=== PATIENT | female | born 1960 | race Hispanic/Latino ===

== ENCOUNTER → 2023-11-18 14:31 | Outpatient (REF) | payer OTHER, SELFPAY | LOC: WDC 14:31 | PROVIDERS: ATTENDING PHYSICIAN Family Medicine | DX: Z12.31 Encounter for screening mammogram for malignant neoplasm of breast (principal) | CPT/HCPCS: 77063; 77067 ==

== ENCOUNTER → 2023-11-23 14:44 | Outpatient (REF) | payer OTHER, SELFPAY | LOC: DHCBC HW 14:44 | PROVIDERS: ATTENDING PHYSICIAN Internal Medicine Cardiovascular Disease; FAMILY PHYSICIAN Family Medicine | DX: R07.89 Other chest pain (principal) | CPT/HCPCS: 93306 ==

== ENCOUNTER → 2023-12-09 13:43 | Outpatient (REF) | payer OTHER, SELFPAY | LOC: RCS 13:43 | PROVIDERS: ATTENDING PHYSICIAN Internal Medicine Cardiovascular Disease; FAMILY PHYSICIAN Family Medicine | DX: R07.89 Other chest pain (principal) | CPT/HCPCS: 93017; 93350 ==

== ENCOUNTER → 2024-01-23 10:47 | Outpatient (REF) | payer OTHER, SELFPAY | LOC: RAD 10:47 | PROVIDERS: ATTENDING PHYSICIAN Family Medicine | DX: M25.551 Pain in right hip (principal) | CPT/HCPCS: 73502 ==

== ENCOUNTER → 2024-02-07 08:30 | Outpatient (REF) | payer OTHER, SELFPAY | LOC: PAVMRI 08:30 | PROVIDERS: ATTENDING PHYSICIAN Family Medicine | DX: D49.6 Neoplasm of unspecified behavior of brain (principal); Q28.2 Arteriovenous malformation of cerebral vessels | CPT/HCPCS: 70553; A9575 ==

== ENCOUNTER → 2024-03-08 12:51 | Outpatient (REF) | payer OTHER, SELFPAY | LOC: HWRAD 12:51 | PROVIDERS: ATTENDING PHYSICIAN Nurse Practitioner Adult Health; FAMILY PHYSICIAN Family Medicine | DX: D25.9 Leiomyoma of uterus, unspecified (principal); R10.2 Pelvic and perineal pain | CPT/HCPCS: 76830; 76856 ==

== ENCOUNTER 2025-02-05 10:22 | Emergency (ER) | payer OTHER, SELFPAY ==
[2025-02-05 10:31] VITALS: BP 206/121
[2025-02-05 11:01] VITALS: BP 159/92
--- NOTE | 2025-02-05 12:53 | ED.GENMED ---
History of Present Illness
General
Chief Complaint: Musculo-Skeletal Complaint
Source: patient
Exam Limitations: none
Time Seen by Provider: 02/05/25 12:40
Nursing documentation reviewed up to this point in time: agreed with
History of Present Illness
History of Present Illness:
64-year-old female with history as documented presents to the emergency room for evaluation of uncontrolled chronic pain in her right arm. Patient reports that she has been having pain in her upper extremities for months. She says that she was
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 She says initially she started with symptoms in the left arm�she says that she was treated with a steroid pack which resolved the symptoms. She says about 2 months ago symptoms
started in the right arm. She was seen in urgent care for this and once again started on steroids which helped; she said she finished steroid pack 2 weeks ago and since then pain has increased once again. She describes a shooting pain from the
right shoulder that radiates towards the fingertips on the right. Worse with certain movements. She denies any weakness or numbness. She denies any other complaints. She says that she scheduled an appoint with her primary doctor but feels her
symptoms are poorly controlled and cannot wait until her appointment and so she came to the ER.
Past History
Past History
ED Past Medical History: Cancer, GERD and HTN
ED Past Surgical History: Brain, Gynecological and Other (Breast cancer)
Social History
Tobacco: Non-smoker
Alcohol: None
Drug: None
Personal:
Living: with family
Employment: Employed
Family History
Family History: Other (Noncontributory)
Review of Systems
Review of Systems
All Other Systems: ROS reviewed and negative except as documented in HPI and ROS
Respiratory: Denies trouble breathing
Cardiac: Denies chest pain
ABD/GI: Denies abdominal pain
Musculoskeletal: Reports other (Right arm pain)
Neurological: Denies weakness or numbness
Phy Exam
Physical Exam
Physical Exam:
General: Well appearing and non-toxic
HEENT: protecting airway
Neck: appears supple
CV: No evidence of cyanosis
Resp: No accessory muscle use
Abd: Non-distended
Extremities: No deformities; she has some mild paraspinal tenderness right side cervical region and tenderness along the right upper trapezius; she has full range of motion of the right shoulder and elbow and is using her arm throughout my history
and exam despite her reported pain; motor and sensory function is intact and symmetric in the upper extremities bilaterally in the radial, median, ulnar nerve distributions
Neuro: Alert
Psych: Normal affect
Skin: Intact, no rash on the upper extremities
Scores
Heart Failure Risk
Heart Failure Risk Score: Not Applicable
Heart Score for Chest Pain Patients
STEMI patient?: Not applicable
Withdrawal Assessment of Alcohol
Withdrawal Assessment Completed?: Not applicable
Course
Orders/Labs/Results
Orders:
Orders
02/05/25 10:36
EKG [Electrocardiogram (*1)] Urgent
Reason for Study: Hypertension, Benign
EKG- Treatment ONCE
02/05/25 12:49
Ketorolac [Toradol] 30 mg IM NOW STA
Oxycodone [Roxicodone] 5 mg PO NOW STA
Prednisone [Deltasone] 50 mg PO NOW STA
Vital Signs
Initial and Last Documented VS:
Initial Vital Signs
Temp Pulse Resp BP Pulse Ox
36.7 C 96 18 206/121 99
02/05/25 10:31 02/05/25 10:31 02/05/25 10:31 02/05/25 10:31 02/05/25 10:31
Last Documented Vital Signs
Temp Pulse Resp BP Pulse Ox
36.7 C 96 18 159/92 99
02/05/25 10:31 02/05/25 10:31 02/05/25 10:31 02/05/25 11:01 04/22/25 10:31
MDM/Problems Addressed
Differential Diagnosis Includes:
Cervical radiculopathy, arthritis
MDM/Problems Addressed:
64-year-old female presents with uncontrolled chronic pain in her right arm. 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 She was hypertensive in triage this improved by my
assessment that she says she did not take her blood pressure medicine this morning. Rest of vitals acceptable. Physical exam as above. Suspect likely cervical radiculopathy. In my judgment based on history and exam no indication for emergent
imaging. Will prescribe steroids as these have helped her in the past and can start on pain control regimen. Follow-up with primary care physician as an outpatient. Patient comfortable with this plan. All questions answered.
Acute Exacerbation and/or Progression of Chronic Illness:
Acutely hypertensive�no signs or symptoms of hypertensive crisis�no indication for emergent antihypertensives
Acute Exacerbation and/or Progression of Chronic Illness: HTN
*Pulse Oximetry
Patient hypoxic: no
*EKG
Interpreted by ED Provider?: Yes
Heart Rate: 86
Rate: normal
Rhythm: sinus
Dragoon: normal axis
Interval: normal interval
QRS Pattern: normal QRS
Ischemia: no ischemia
*Critical Care Note
Total Time (30-74mins, 75-104mins- exclusive of procedures): Not Applicable
Data Reviewed
Source: patient and records
Further Testing Considered But Not Given:
Considered x-ray of the shoulder, cervical spine
Update Note
Update Note:
ED Attending Note
-
Portions of this chart may have been created with voice recognition software.� Occasional wrong word or��sound alike� substitutions may have occurred due to the inherent limitations of voice recognition software.
Discharge Plan
Departure
Patient Disposition: Home (Routine Discharge)
Date of Disposition: 02/05/25
Time of Disposition: 12:53
Patient with high blood pressure during this ER visit?: Yes
Discharge Problem:
Cervical radiculopathy
Instructions: Radiculopathy of the neck and back (including sciatica)
Prescriptions:
New
tramadol 50 mg tablet
50 mg PO TID PRN (Reason: Pain) Qty: 14 0RF
prednisone 10 mg Tablet
See Rx Instructions .ROUTE .COMPLEX Qty: 45 0RF
Rx Instructions:
Take By Mouth:
50 mg daily x3 days, 40 mg daily x3 days,
30 mg daily x3 days, 20 mg daily x3 days,
10 mg daily x3 days
No Action
acetaminophen [Tylenol Extra Strength] 500 MG tablet
500 mg PO Q6HPRN PRN (Reason: mild pain)
ginkgo biloba 60 MG tablet
60 mg PO DAILY
gabapentin 100 MG capsule
100 mg PO DAILYPRN PRN (Reason: numbness)
metoprolol succinate 25 MG tablet extended release 24 hr
25 mg PO DAILY
bupropion HCl 300 MG tablet extended release 24 hr
300 mg PO DAILY
peg 400-propylene glycol (PF) [Systane (PF)] 1 EACH dropperette
1 drp BOTH EYES DAILYPRN PRN (Reason: dry eyes)
calcium carbonate-vitamin D3 [Oyster Shell Calcium-Vit D3] 500 MG tablet
1 tab PO DAILY
dexlansoprazole [Kapidex] 60 MG capsule,biphase delayed releas
60 mg PO DAILY
elderberry fruit and flower 1 EACH capsule
1 ea PO DAILY
alum-mag hydroxide-simeth [Mylanta Maximum Strength] 355 ML suspension
15 ml PO Q4H PRN (Reason: indigestion) Qty: 8 0RF
clindamycin HCl 150 MG capsule
300 mg PO QID 7 Days Qty: 28 0RF
fluconazole 200 MG tablet
200 mg PO DAILY Qty: 10 0RF
prednisone 10 mg Tablet
See Rx Instructions .ROUTE .COMPLEX Qty: 30 0RF
Rx Instructions:
Take By Mouth:
40 mg daily x3 days, 30 mg daily x3 days,
20 mg daily x3 days, 10 mg daily x3 days.
cyclobenzaprine 10 mg tablet
10 mg PO TID PRN (Reason: muscle spasm) Qty: 10 0RF
Referrals:
Ginny Harris DO [Family Provider] - Next open appointment
Activity Restrictions/Additional Instructions:
Thank you for visiting the Emergency Department at [facility].
1. Please schedule a follow up appointment as directed. Call first thing tomorrow morning to make an appointment.
2. If indicated, please take your medications as instructed and indicated on discharge paperwork.
3. If any of your symptoms do not improve, or persist, or become more severe within 6-12 hours, please return to the emergency department for further care.
4. Please return to the emergency department if you develop a headache, neck pain/stiffness, fever greater than 100.4F, chest pain, shortness of breath, persistent nausea, vomiting, slurred speech, difficulty walking, numbness/tingling, weakness,
signs of infection or any other symptoms that are worrisome to you.
Please call [phone] if you have any questions.
Interventions
Interventions:
*Risk Screen - Suicide Last Done: 02/05/25 10:34
*General Assessment Last Done: 02/05/25 10:34
*Neglect/Abuse Screening Last Done: 02/05/25 10:34
*ED COVID-19 Vaccine History Last Done: 02/05/25 10:34
ED-Musculoskeletal Assessment Last Done: 02/05/25 11:02
Discharge Date and Time
Print Language: TAMAZIGHT
[2025-02-05] MEDS: ROXICODONE 5 MG PO (12:55)
[2025-02-05] MEDS: DELTASONE 50 MG PO (12:55)
[2025-02-05] MEDS: TORADOL 30 MG IM (12:55)
== END 2025-02-05 13:02 | disposition home or self-care (01) ==
LOC: EMR 10:22
PROVIDERS: EMERGENCY PHYSICIAN Emergency Medicine; FAMILY PHYSICIAN Family Medicine
DX: M54.12 Radiculopathy, cervical region (principal); G89.29 Other chronic pain; I10 Essential (primary) hypertension; Z85.3 Personal history of malignant neoplasm of breast
CPT/HCPCS: 96372; 99284; 93005

== ENCOUNTER → 2025-02-15 10:15 | Outpatient (REF) | payer OTHER, SELFPAY | LOC: RAD 10:15 | PROVIDERS: ATTENDING PHYSICIAN Family Medicine | DX: R29.898 Other symptoms and signs involving the musculoskeletal system (principal); M79.601 Pain in right arm | CPT/HCPCS: 73090 ==

== ENCOUNTER → 2025-02-19 12:23 | Outpatient (REF) | payer OTHER, SELFPAY | LOC: EMG 12:23 | PROVIDERS: ATTENDING PHYSICIAN Family Medicine | DX: M54.12 Radiculopathy, cervical region (principal); R20.0 Anesthesia of skin | CPT/HCPCS: 95886; 95911 ==

== ENCOUNTER → 2025-03-14 13:47 | Outpatient (REF) | payer OTHER, SELFPAY | LOC: WDC 13:47 | PROVIDERS: ATTENDING PHYSICIAN Family Medicine | DX: Z12.31 Encounter for screening mammogram for malignant neoplasm of breast (principal) | CPT/HCPCS: 77063; 77067 ==

== ENCOUNTER → 2025-08-19 19:55 | Outpatient (REF) | payer OTHER, SELFPAY | LOC: MRI 19:55 | PROVIDERS: ATTENDING PHYSICIAN Family Medicine | DX: Q28.2 Arteriovenous malformation of cerebral vessels (principal); R41.3 Other amnesia; D49.6 Neoplasm of unspecified behavior of brain | CPT/HCPCS: 70553; A9575 ==

== ENCOUNTER → 2025-09-24 10:48 | Outpatient (REF) | payer OTHER, SELFPAY | LOC: RAD 10:48 | PROVIDERS: ATTENDING PHYSICIAN Family Medicine | DX: M85.88 Other specified disorders of bone density and structure, other site (principal) | CPT/HCPCS: 77080 ==